=== PATIENT | female | born 1990 | race Caucasian/White ===

== ENCOUNTER 2022-05-31 07:28 | Inpatient (IN) | payer OTHER ==
[2022-05-31 08:12] VITALS: BMI 35.7
[2022-05-31] MEDS: ELECTROLYTE-148 SOLN 1,000 ML IV SCH ×3 (08:40→19:10)
[2022-05-31] MEDS ORDERED: DINOPROSTONE 10 MG VAGINAL SUPPOSITORY VG ONE (09:00)
[2022-05-31] MEDS ORDERED: OXYTOCIN 30 UNITS in 0.9% NS 30 UNIT/500 ML INFUS.BAG IVPB ONE (11:09)
[2022-05-31] MEDS ORDERED: OXYTOCIN 30 UNITS in 0.9% NS 30 UNIT/500 ML INFUS.BAG IVPB SCH (11:15)
[2022-05-31] MEDS ORDERED: FENTANYL/BUPIVACAINE/NS/PF - PCEA - 50 ML DISP.SYRIN EP ONE ×4 (13:12→23:07)
[2022-05-31] MEDS: FENTANYL/BUPIVACAINE/NS/PF - PCEA - 50 ML DISP.SYRIN EP SCH ×4 (13:40→23:10)
[2022-05-31] MEDS ORDERED: NALOXONE HCL 0.4 MG/ML VIAL IVPUSH PRN (13:59)
[2022-05-31 14:19] VITALS: RESP 18
[2022-06-01] MEDS ORDERED: ONDANSETRON 4 MG/2 ML VIAL ONE (00:43)
[2022-06-01] MEDS ORDERED: KETOROLAC TROMETHAMINE 30 MG/1 ML VIAL ONE (00:43)
[2022-06-01] MEDS ORDERED: morphine SULFATE/PF 1 MG/2 ML (2cc Syringe - QUVA) ONE (00:43)
[2022-06-01] MEDS: OXYTOCIN 20 UNITS in 0.9% NS 20 UNIT/1,000 ML INFUS.BAG IV SCH ×2 (01:01→04:53)
[2022-06-01] MEDS ORDERED: ACETAMINOPHEN 325 MG TABLET (FP) PO PRN (01:44)
[2022-06-01] MEDS ORDERED: WITCH HAZEL 50% (TUCKS) 40 PAD/JAR PAD TP PRN (01:44)
[2022-06-01] MEDS ORDERED: IBUPROFEN 800 MG/8 ML IJ IVPB PRN (01:44)
[2022-06-01] MEDS ORDERED: BENZOCAINE 28 GM HEMORRHOIDAL OINTMENT TP PRN (01:44)
[2022-06-01] MEDS ORDERED: SENNOSIDES/DOCUSATE COMBO (SENNA PLUS) TABLET (UD) PO PRN (01:44)
[2022-06-01] MEDS ORDERED: METHYLERGONOVINE MALEATE 0.2 MG/1 ML AMP IM PRN (01:44)
[2022-06-01] MEDS ORDERED: BENZOCAINE 20% 57 GM BOTTLE TP PRN (01:44)
[2022-06-01 02:39] LABS: CORD HCO3 23.6 mmHg (20-29); CORD PCO2 47.6 mmHg (30-78); CORD pH 7.313 (7.14-7.44)
[2022-06-01 02:41] LABS: CORD HCO3 18.7 mmHg (20-29); CORD PCO2 42.9 mmHg (30-78); CORD pH 7.257 (7.14-7.44)
[2022-06-01] MEDS: CEFAZOLIN 1 GM in DEXTROSE 5%-WATER - 50 ML IVPB SCH ×3 (03:16→18:15)
[2022-06-01] MEDS: PRENATAL VITAMINS W/ FOLIC ACID TABLET (FP) PO SCH (10:24)
[2022-06-01] MEDS: SERTRALINE HCL 50 MG TABLET (FP) PO SCH (11:20)
[2022-06-01] MEDS: IBUPROFEN 600 MG TABLET (FP) PO PRN ×2 (13:29→18:14)
[2022-06-01] MEDS ORDERED: oxyCODONE HCL 5 MG TABLET PO PRN ×2 (13:45)
[2022-06-02] MEDS: IBUPROFEN 600 MG TABLET (FP) PO PRN ×3 (00:58→21:23)
[2022-06-02] MEDS ORDERED: BISACODYL 10 MG SUPP.RECT RC PRN (01:45)
[2022-06-02] MEDS: OXYTOCIN 20 UNITS in 0.9% NS 20 UNIT/1,000 ML INFUS.BAG IV SCH (02:57)
[2022-06-02 08:33] LABS: BASO % 0.2 % (0-2.0); EOS % 0.6 % (0-4.5); HEMATOCRIT 30.4 % (32.4-45.2); LYMPH % 15.7 % (8-40); MEAN PLT VOLUME 7.9 fl (7.5-11.1); MONO % 4.5 % (3.8-10.2); PLATELET COUNT 133 10^3/uL (134-434); RBC 3.58 M/mm3 (3.60-5.2); RDW 14.4 % (11.6-15.6); WHITE BLOOD COUNT 12.6 K/mm3 (4.0-10.0)
[2022-06-02] MEDS: ENOXAPARIN NA (PORCINE) 40 MG/0.4 ML DISP.SYRIN SQ SCH (09:37)
[2022-06-02] MEDS: SERTRALINE HCL 50 MG TABLET (FP) PO SCH (09:37)
[2022-06-02] MEDS: PRENATAL VITAMINS W/ FOLIC ACID TABLET (FP) PO SCH (09:37)
[2022-06-02] MEDS: SIMETHICONE 80 MG TAB.CHEW (FP) PO PRN (21:23)
[2022-06-03] MEDS: ENOXAPARIN NA (PORCINE) 40 MG/0.4 ML DISP.SYRIN SQ SCH (09:54)
[2022-06-03] MEDS: SERTRALINE HCL 50 MG TABLET (FP) PO SCH (09:55)
[2022-06-03] MEDS: IBUPROFEN 600 MG TABLET (FP) PO PRN (09:55)
[2022-06-03] MEDS: SIMETHICONE 80 MG TAB.CHEW (FP) PO PRN (09:55)
[2022-06-03] MEDS: PRENATAL VITAMINS W/ FOLIC ACID TABLET (FP) PO SCH (09:55)
[2022-06-03 10:56] VITALS: BP 128/73; PULSE 93; TEMP 98.2
== END 2022-06-03 11:45 | disposition home or self-care (01) | DRG 788 ==
LOC: JLDR 07:28 → J3W 06-01 03:15
PROVIDERS: ADMIT Obstetrics & Gynecology; ATTEND Obstetrics & Gynecology
PROC: 3E0P7VZ Introduction of Hormone into Female Reproductive, Via Natural or Artificial Opening (ICD-10-PCS; 2022-05-31)
PROC: 10D00Z1 Extraction of Products of Conception, Low, Open Approach (ICD-10-PCS; principal; 2022-06-01)
DX: O62.0 Primary inadequate contractions (principal); Z3A.39 39 weeks gestation of pregnancy; Z37.0 Single live birth
CPT/HCPCS: 36415; 36600; 82803; 85025; 88307-TC